=== PATIENT | female | born 1990 | race Caucasian/White ===

== ENCOUNTER 2020-11-11 08:22 | Inpatient (IN) ==
[2020-11-11] MEDS ORDERED: OXYTOCIN 30 UNITS/500 ML BAG IV PRN ×2 (08:43)
[2020-11-11] MEDS ORDERED: miSOPROStoL 50 MCG TAB PO ONE (09:04)
[2020-11-11 09:07] LABS: Hemoglobin 11.2 g/dL (12.0-16.0); Mean Corpuscular Hemoglobin 25.6 pg (25-34); Mean Corpuscular Hgb Conc 31.1 g/dL (32-36); Mean Corpuscular Volume 82.4 fL (80-100); Mean Platelet Volume 10.9 fL (7.4-10.4); Platelet Count 269 K/uL (130-400); RDW Coefficient of Variation 15.3 % (11.5-14.5); Red Blood Count 4.37 M/uL (4.2-5.4); White Blood Count 7.05 K/uL (4.8-10.8)
--- NOTE | 2020-11-11 14:30 | Labor Progress Brief Note ---
Date of Service November 11, 2020 Subjective Tolerating contractions, becoming more painful Assessment & Plan (1) PROM (premature rupture of membranes): Plan: Continue IOL, now s/p one dose cytotec with adequate ripening to begin pitocin. Epidural on request. Admission and Anticipated Discharge Date Admission Date: November 11, 2020 Physical Exam Physical Exam: LOF clear continues /-2 [place] irreg, Q2-5 FHT Cat 1 Results & Data ([facility]) Vital Signs (Past 12 Hours) Vital Signs Temp Pulse Resp BP 11/11/20 13:05 99.3 F 16 11/11/20 10:51 98.1 F 70 20 134/91 11/11/20 08:50 82 141/78 H 11/11/20 08:39 98.6 F 18 Coding Level of Care Code None Diagnoses PROM (premature rupture of membranes) O42.90
[2020-11-11] MEDS: LACTATED RINGER'S 1,000 ML IV PRN ×3 (14:36→22:41)
[2020-11-11] MEDS ORDERED: BUPIVACAINE 0.25% 30 ML VIAL ONE (16:19)
[2020-11-11] MEDS ORDERED: fentaNYL citrate 100 MCG/2 ML VIAL ONE (16:19)
[2020-11-11] MEDS ORDERED: ePHEDrine sulfate 50 MG/ML AMP ONE (16:19)
[2020-11-11] MEDS ORDERED: SODIUM CHLORIDE 0.9% INJ 10 ML VIAL ONE (16:19)
[2020-11-11] MEDS ORDERED: fentaNYL 2MCG/ML ROPIVACAINE 1.25MG/ML 100 ML BAG EPI ONE (16:20)
--- NOTE | 2020-11-11 17:07 | Anesthesiology Consultation ---
Date of Service November 11, 2020 Assessment & Plan Chart Review Chart Review: Acceptable Risk for Labor Epidural Consults Requested none History Height/Weight Height: 5 ft 2 in Weight: 80.739 kg Allergies Allergy/AdvReac Type Severity Reaction Status Date / Time No Known Allergies Allergy Verified 11/06/20 11:19 Medications Home Medications Medication Instructions Recorded Confirmed Last Taken prenat.vits,roslyn,omk-pleg-nbogy 1 tab PO DAILY 04/25/20 11/11/20 11/10/20 acetone (urine) test (Ketone Urine #50 ea 09/25/20 11/06/20 Unknown Test) blood sugar diagnostic (OneTouch #150 ea 09/25/20 11/06/20 Unknown Verio test strips) blood-glucose meter (OneTouch #1 ea 09/25/20 11/06/20 Unknown Verio Flex meter) lancets 33 gauge (OneTouch Delica #150 ea 09/25/20 11/06/20 Unknown Plus Lancet) cetirizine [Zyrtec] 1 tab PO DAILY 10/20/20 11/11/20 11/10/20 ferrous sulfate 325 mg (65 mg 325 mg PO Q OTHER DAY tab 10/20/20 11/11/20 11/08/20 iron) tablet breast pump #1 ea 10/30/20 11/06/20 Unknown Active Medications Generic Name Dose Route Start Last Admin Trade Name Freq PRN Reason Stop Dose Admin Oxytocin 30 units in 500 mls @ 3 mls/hr 11/11/20 08:43 11/11/20 15:40 Pitocin IV 11/13/20 08:42 0.18 units/hr .Q24H PRN 3 mls/hr Labor Induction/Augmentation Titration Protocol 0.18 UNITS/HR Lactated Ringer's 1,000 mls @ 125 mls/hr 11/11/20 08:43 11/11/20 16:30 Lr IV 11/13/20 08:42 999 mls/hr .Q8H PRN Infusion L&D Protocol Protocol Past Medical History Medical History (Updated 11/11/20 @ 14:29 by Aline Carson MD) Gestational diabetes Diet-Controlled Infertility Started with IVF - did not develop enough eggs. Converted to IUI in [place] Past Family History Family History Mother Diabetes Father Diabetes Past Surgical History Surgical History History of laparoscopy S/P wisdom tooth extraction Social History Smoking Status: Never smoker Hx Alcohol Use: No Hx Substance Use: No Physical Exam Vital Signs Last Vital Signs Temp 37.3 C 11/11/20 14:32 Pulse 90 11/11/20 17:06 Resp 18 11/11/20 15:38 BP 126/66 11/11/20 17:06 Pulse Ox 98 11/11/20 17:05 Testing Laboratory Results 11/11/20 08:51 11/11/20 09:27 POC Glucose 80
[2020-11-11] MEDS ORDERED: NALBUPHINE HCL INJ 10 MG/ML AMP IV PRN (17:09)
[2020-11-11] MEDS ORDERED: ePHEDrine sulfate 50 MG/ML AMP IV PRN (17:09)
[2020-11-11] MEDS ORDERED: NALOXONE HCL 0.4 MG/1 ML VIAL/CARP IV PRN (17:09)
[2020-11-11] MEDS ORDERED: diphenhydrAMINE 50 MG/ML VIAL IV PRN (17:09)
[2020-11-11] MEDS ORDERED: fentaNYL 2MCG/ML ROPIVACAINE 1.25MG/ML 100 ML BAG EPI PRN (17:09)
[2020-11-11] MEDS ORDERED: NALOXONE HCL 1 MG in SODIUM CHLORIDE 0.9% 1000ML 1,000 ML IV PRN (17:09)
[2020-11-11] MEDS ORDERED: CALCIUM CARBONATE 500 MG CHEWABLE TAB PO PRN (19:22)
--- NOTE | 2020-11-11 20:22 | Labor Progress Brief Note ---
Date of Service November 11, 2020 Subjective Comfortable with epidural Assessment & Plan (1) PROM (premature rupture of membranes): Plan: Continue IOL, titrate pitocin to adequate pattern. Discussed no significant ce rvical change but still very early in the process, ok to continue onwards. Admission and Anticipated Discharge Date Admission Date: November 11, 2020 Physical Exam Physical Exam: /-2 FHT Cat 1 [place] Q2 in clusters then a 5min break Pit @ 9 Results & Data ([facility]) Vital Signs (Past 12 Hours) Vital Signs Temp Pulse Resp BP Pulse Ox 11/11/20 20:15 75 97 11/11/20 20:11 71 122/67 11/11/20 20:10 75 97 11/11/20 20:05 90 97 11/11/20 20:00 72 97 11/11/20 19:56 71 117/66 11/11/20 19:55 83 97 11/11/20 19:50 76 97 11/11/20 19:45 85 97 11/11/20 19:42 79 117/67 11/11/20 19:40 80 98 11/11/20 19:35 85 98 11/11/20 19:30 89 98 11/11/20 19:25 84 97 11/11/20 19:20 86 98 11/11/20 19:15 98.4 F 87 18 97 11/11/20 19:10 81 98 11/11/20 19:05 80 98 11/11/20 19:00 97 H 97 11/11/20 18:58 91 H 120/75 11/11/20 18:55 91 H 97 11/11/20 18:50 83 97 11/11/20 18:45 86 97 11/11/20 18:42 80 122/58 L 11/11/20 18:40 84 97 11/11/20 18:35 88 97 11/11/20 18:30 82 97 11/11/20 18:28 80 20 120/72 11/11/20 18:25 81 98 11/11/20 18:20 78 96 11/11/20 18:15 77 97 11/11/20 18:13 78 122/69 11/11/20 18:10 76 97 11/11/20 18:05 82 98 11/11/20 18:00 81 98 11/11/20 17:57 75 18 118/66 11/11/20 17:55 77 98 11/11/20 17:50 75 98 11/11/20 17:45 80 98 11/11/20 17:42 82 150/77 H 11/11/20 17:40 84 98 11/11/20 17:35 81 98 11/11/20 17:30 87 98 11/11/20 17:26 81 18 126/69 11/11/20 17:25 74 98 11/11/20 17:24 78 132/70 11/11/20 17:22 81 137/69 11/11/20 17:20 76 141/65 H 98 11/11/20 17:18 77 18 136/75 11/11/20 17:16 80 18 132/71 11/11/20 17:15 80 98 11/11/20 17:14 87 18 138/73 11/11/20 17:12 81 18 132/73 11/11/20 17:10 81 18 131/72 98 11/11/20 17:08 88 18 128/70 11/11/20 17:06 90 126/66 11/11/20 17:05 89 98 11/11/20 17:04 94 H 128/72 11/11/20 17:02 91 H 18 143/87 H 11/11/20 17:00 85 20 135/81 98 11/11/20 16:58 98.2 F 81 20 131/75 11/11/20 16:56 80 20 136/81 11/11/20 16:55 80 98 11/11/20 16:54 71 20 134/78 11/11/20 16:52 93 H 20 149/85 H 11/11/20 16:50 87 150/90 H 99 11/11/20 16:48 81 20 144/92 H 11/11/20 16:45 112 H 99 11/11/20 16:41 102 H 20 149/90 H 11/11/20 16:40 99 H 98 11/11/20 15:38 86 18 133/71 11/11/20 14:32 99.1 F 73 18 135/70 11/11/20 13:05 99.3 F 16 11/11/20 10:51 98.1 F 70 20 134/91 11/11/20 08:50 82 141/78 H 11/11/20 08:39 98.6 F 18 Coding Level of Care Code None Diagnoses PROM (premature rupture of membranes) O42.90
[2020-11-12] MEDS: LACTATED RINGER'S 1,000 ML IV PRN (01:31)
--- NOTE | 2020-11-12 02:23 | Labor Progress Brief Note ---
Date of Service November 12, 2020 Subjective Comfortable with epidural Assessment & Plan (1) PROM (premature rupture of membranes): Plan: Some progress definitely present though I think maybe less than was expected by RN exam. Still sean regularly, and intermittently Cat 2 despite repositioning and boluses. Will give 30min break from pit to allow resuscitation, then resume at half current level and attempt to titrate up to Q2m. Can place IUPC if no progress at next exam. Unclear if CPD or if patient just not in active labor yet. Admission and Anticipated Discharge Date Admission Date: November 11, 2020 Physical Exam Physical Exam: Exam of cervix: I'd say 4.5/90/-2, definitely different from my last exam. In room with RN we said "same as last exam" to avoid discouraging patient, and there definitely is progress, but I wouldn't quite agree with 5.5cm. I do note some molding that seems more than before. FHT intermittently cat 2 with lates, then Cat 1 after repositioning. Moderate variability, normal baseline. [place] Q2-3 Pit @ 7 Results & Data ([facility]) Vital Signs (Past 12 Hours) Vital Signs Temp Pulse Resp BP Pulse Ox 11/12/20 02:15 95 H 95 11/12/20 02:11 88 124/58 L 11/12/20 02:10 93 H 95 11/12/20 02:05 93 H 95 11/12/20 02:03 94 H 94 11/12/20 02:00 94 H 95 11/12/20 01:58 91 H 121/56 L 94 11/12/20 01:55 92 H 95 11/12/20 01:50 92 H 96 11/12/20 01:45 87 96 11/12/20 01:41 82 115/55 L 11/12/20 01:40 85 96 11/12/20 01:35 79 97 11/12/20 01:30 83 97 11/12/20 01:27 77 124/61 11/12/20 01:25 78 97 11/12/20 01:20 80 97 11/12/20 01:15 76 97 11/12/20 01:12 75 134/67 11/12/20 01:10 77 96 11/12/20 01:05 83 97 11/12/20 01:00 98.2 F 79 18 97 11/12/20 00:57 82 142/67 H 11/12/20 00:55 81 97 11/12/20 00:50 83 97 11/12/20 00:45 91 H 97 11/12/20 00:41 101 H 122/59 L 11/12/20 00:40 101 H 96 11/12/20 00:35 95 H 95 11/12/20 00:30 93 H 95 11/12/20 00:27 93 H 122/58 L 94 11/12/20 00:25 92 H 95 11/12/20 00:20 93 H 95 11/12/20 00:15 88 95 11/12/20 00:11 88 120/56 L 11/12/20 00:10 91 H 96 11/12/20 00:05 85 96 11/12/20 00:00 82 96 11/11/20 23:56 88 113/58 L 11/11/20 23:55 89 96 11/11/20 23:50 86 97 11/11/20 23:45 106 H 98 11/11/20 23:43 127 H 18 128/75 11/11/20 23:40 104 H 99 11/11/20 23:35 95 H 98 11/11/20 23:30 80 97 11/11/20 23:27 71 118/57 L 11/11/20 23:25 77 96 11/11/20 23:20 78 97 11/11/20 23:15 76 97 11/11/20 23:12 74 125/63 11/11/20 23:10 77 98 11/11/20 23:05 76 97 11/11/20 23:00 87 98 11/11/20 22:56 96 H 135/78 11/11/20 22:55 104 H 97 11/11/20 22:50 99 H 97 11/11/20 22:45 101 H 96 11/11/20 22:42 99.3 F 18 11/11/20 22:40 105 H 97 11/11/20 22:35 89 98 11/11/20 22:30 97 H 97 11/11/20 22:27 88 134/75 11/11/20 22:25 96 H 97 11/11/20 22:20 103 H 97 11/11/20 22:15 88 97 09/21/21 22:12 83 137/74 0921/21 22:10 87 97 11/11/20 22:05 86 95 11/11/20 22:00 81 96 11/11/20 21:56 84 121/64 11/11/20 21:55 84 95 11/11/20 21:50 82 95 11/11/20 21:45 79 95 11/11/20 21:42 81 128/63 11/11/20 21:40 79 95 11/11/20 21:35 82 96 11/11/20 21:30 86 95 11/11/20 21:26 80 125/64 11/11/20 21:25 99 H 96 11/11/20 21:20 81 96 11/11/20 21:15 76 96 11/11/20 21:12 74 126/67 11/11/20 21:10 73 96 11/11/20 21:05 99.0 F 79 96 11/11/20 21:00 70 18 96 11/11/20 20:57 70 117/56 L 11/11/20 20:55 74 96 11/11/20 20:50 74 96 11/11/20 20:45 79 96 11/11/20 20:41 75 108/55 L 11/11/20 20:40 72 97 11/11/20 20:35 75 97 11/11/20 20:30 73 97 11/11/20 20:28 72 109/56 L 11/11/20 20:25 81 98 11/11/20 20:20 73 98 11/11/20 20:15 75 97 11/11/20 20:11 71 122/67 11/11/20 20:10 75 97 11/11/20 20:05 90 97 11/11/20 20:00 72 18 97 11/11/20 19:56 71 117/66 11/11/20 19:55 83 97 11/11/20 19:50 76 97 11/11/20 19:45 85 97 21 19:42 79 117/67 21 19:40 80 98 21 19:35 85 98 21 19:30 89 98 21 19:25 84 97 11/11/20 19:20 86 98 11/11/20 19:15 98.4 F 87 18 97 11/11/20 19:10 81 98 11/11/20 19:05 80 98 11/11/20 19:00 97 H 97 11/11/20 18:58 91 H 120/75 11/11/20 18:55 91 H 97 11/11/20 18:50 83 97 11/11/20 18:45 86 97 11/11/20 18:42 80 122/58 L 11/11/20 18:40 84 97 11/11/20 18:35 88 97 11/11/20 18:30 82 97 11/11/20 18:28 80 20 120/72 11/11/20 18:25 81 98 11/11/20 18:20 78 96 11/11/20 18:15 77 97 11/11/20 18:13 78 122/69 11/11/20 18:10 76 97 11/11/20 18:05 82 98 11/11/20 18:00 81 98 11/11/20 17:57 75 18 118/66 11/11/20 17:55 77 98 11/11/20 17:50 75 98 11/11/20 17:45 80 98 11/11/20 17:42 82 150/77 H 11/11/20 17:40 84 98 11/11/20 17:35 81 98 11/11/20 17:30 87 98 11/11/20 17:26 81 18 126/69 11/11/20 17:25 74 98 11/11/20 17:24 78 132/70 11/11/20 17:22 81 137/69 11/11/20 17:20 76 141/65 H 98 11/11/20 17:18 77 18 136/75 11/11/20 17:16 80 18 132/71 11/11/20 17:15 80 98 11/11/20 17:14 87 18 138/73 11/11/20 17:12 81 18 132/73 11/11/20 17:10 81 18 131/72 98 11/11/20 17:08 88 18 128/70 11/11/20 17:06 90 126/66 11/11/20 17:05 89 98 11/11/20 17:04 94 H 128/72 11/11/20 17:02 91 H 18 143/87 H 11/11/20 17:00 85 20 135/81 98 11/11/20 16:58 98.2 F 81 20 131/75 11/11/20 16:56 80 20 136/81 11/11/20 16:55 80 98 11/11/20 16:54 71 20 134/78 11/11/20 16:52 93 H 20 149/85 H 11/11/20 16:50 87 150/90 H 99 11/11/20 16:48 81 20 144/92 H 11/11/20 16:45 112 H 99 11/11/20 16:41 102 H 20 149/90 H 11/11/20 16:40 99 H 98 11/11/20 15:38 86 18 133/71 11/11/20 14:32 99.1 F 73 18 135/70 Coding Level of Care Code None Diagnoses PROM (premature rupture of membranes) O42.90
[2020-11-12] MEDS ORDERED: ACETAMINOPHEN 650 MG SUPP PR STA (03:07)
--- NOTE | 2020-11-12 03:09 | Communication Note ---
Date of Service: November 12, 2020 RN alerted me to patient temp rising and patient feels chilled. Will start Unasyn for suspected chorioamnionitis and give tylenol now for symptom relief. FHT Cat 1 and pitocin resuming now.
[2020-11-12] MEDS ORDERED: AMPICILLIN/SULBACTAM SOD 3,000 MG in 0.9 % SODIUM CHLORIDE 100 ML IV ONE (03:30)
[2020-11-12] MEDS ORDERED: CITRIC ACID/SODIUM CITRATE 15 ML UDC PO SCH (06:00)
--- NOTE | 2020-11-12 06:03 | Labor Progress Brief Note ---
Date of Service November 12, 2020 Subjective Comfortable with epidural. Note the patient developed elevated temp earlier, and was started on Unasyn and Tylenol x1. When she had fever, she had symptoms of infection. She no longer feels the chills / feverish feelings she had at that time. Assessment & Plan (1) PROM (premature rupture of membranes): Plan: ROM at 0400 yesterday morning, induction began at admission at 8:30am with cytotec then pitocin, and patient has made slow progress to now 6cm dilation. IUPC placed and shows likely adequate contractions even at this interval, goal of MVU 200-250. (2) Chorioamnionitis: Plan: Patient started on antibiotic and antipyretic with good results, status Cat 1 and maternal symptoms resolved, however I discussed with the patient and FOB that she needs to make progress swiftly to delivery one way or the other in order to relieve the infection. She is not ready to move to section as she was really hoping to avoid that; her mother had 3x . status and maternal status both allow continuation of efforts to induce at this point, but patient also asks about whether sepsis could occur, and we discussed that yes, if the infection persists long enough that would be the eventual result. We placed IUPC after counseling patient and obtaining consent, in order to ensur e that we are providing adequate force to effect delivery, and to improve our ability to document CPD / failure sooner rather than later if that's the case. She is agreeable to a re-check in a few hours and if no further progress would likely agree to , and is aware that distress or worsening maternal condition may force us to a decision even sooner. Initial contraction measurements appear quite strong, so I suspect that since her pitocin has reached 7 before, she has likely been adequate at least some of the time prior to now. For now, close monitoring and try to allow time for cervix to dilate at one more interval. Admission and Anticipated Discharge Date Admission Date: November 11, 2020 Physical Exam Physical Exam: /-1 FHT Cat 1 [place] Q3-4 with pit @ 7 Temp 37C taken while I was in the room Results & Data ([facility]) Vital Signs (Past 12 Hours) Vital Signs Temp Pulse Resp BP Pulse Ox 11/12/20 05:50 74 96 11/12/20 05:45 97 H 97 11/12/20 05:42 68 105/59 L 11/12/20 05:40 86 96 11/12/20 05:35 101 H 96 11/12/20 05:30 89 95 11/12/20 05:27 77 116/55 L 94 11/12/20 05:25 77 95 11/12/20 05:20 77 96 11/12/20 05:18 74 94 11/12/20 05:15 79 94 11/12/20 05:13 75 115/55 L 11/12/20 05:12 76 93 11/12/20 05:10 89 94 11/12/20 05:07 80 94 11/12/20 05:05 76 95 11/12/20 05:01 79 94 11/12/20 05:00 74 95 11/12/20 04:56 81 110/54 L 11/12/20 04:55 79 94 11/12/20 04:50 78 95 11/12/20 04:48 79 94 11/12/20 04:45 82 95 11/12/20 04:43 81 94 11/12/20 04:41 85 114/57 L 11/12/20 04:40 82 95 11/12/20 04:37 80 94 11/12/20 04:35 80 95 11/12/20 04:31 79 94 11/12/20 04:30 74 95 11/12/20 04:26 74 110/55 L 94 11/12/20 04:25 78 95 11/12/20 04:20 79 95 11/12/20 04:15 83 96 11/12/20 04:12 76 131/60 11/12/20 04:10 85 97 11/12/20 04:05 95 H 98 11/12/20 04:00 99.5 F 88 18 97 11/12/20 03:55 84 96 11/12/20 03:50 84 96 11/12/20 03:45 89 97 11/12/20 03:42 84 123/58 L 11/12/20 03:40 84 97 11/12/20 03:35 99 H 97 11/12/20 03:30 120 H 97 11/12/20 03:28 142 H 157/99 H 11/12/20 03:25 105 H 97 11/12/20 03:20 99 H 97 11/12/20 03:15 103 H 97 11/12/20 03:12 100 H 145/86 H 11/12/20 03:10 102 H 97 11/12/20 03:05 107 H 97 11/12/20 03:00 100.2 F H 99 H 99 11/12/20 02:56 96 H 136/72 11/12/20 02:55 105 H 99 11/12/20 02:50 96 H 99 11/12/20 02:45 106 H 99 11/12/20 02:42 99 H 131/80 11/12/20 02:40 91 H 99 11/12/20 02:35 91 H 100 11/12/20 02:30 106 H 100 11/12/20 02:26 114 H 136/70 11/12/20 02:25 119 H 96 11/12/20 02:20 100 H 95 11/12/20 02:15 95 H 95 11/12/20 02:11 88 124/58 L 11/12/20 02:10 93 H 95 11/12/20 02:05 93 H 95 11/12/20 02:03 94 H 94 11/12/20 02:00 94 H 95 11/12/20 01:58 91 H 121/56 L 94 11/12/20 01:55 92 H 95 11/12/20 01:50 92 H 96 11/12/20 01:45 87 96 11/12/20 01:41 82 115/55 L 11/12/20 01:40 85 96 11/12/20 01:35 79 97 11/12/20 01:30 83 97 11/12/20 01:27 77 124/61 11/12/20 01:25 78 97 11/12/20 01:20 80 97 11/12/20 01:15 76 97 11/12/20 01:12 75 134/67 11/12/20 01:10 77 96 11/12/20 01:05 83 97 11/12/20 01:00 98.2 F 79 18 97 11/12/20 00:57 82 142/67 H 11/12/20 00:55 81 97 11/12/20 00:50 83 97 11/12/20 00:45 91 H 97 11/12/20 00:41 101 H 122/59 L 09/22/21 00:40 101 H 96 11/12/20 00:35 95 H 95 11/12/20 00:30 93 H 95 11/12/20 00:27 93 H 122/58 L 94 11/12/20 00:25 92 H 95 11/12/20 00:20 93 H 95 11/12/20 00:15 88 95 11/12/20 00:11 88 120/56 L 11/12/20 00:10 91 H 96 11/12/20 00:05 85 96 11/12/20 00:00 82 96 11/11/20 23:56 88 113/58 L 11/11/20 23:55 89 96 11/11/20 23:50 86 97 11/11/20 23:45 106 H 98 11/11/20 23:43 127 H 18 128/75 11/11/20 23:40 104 H 99 11/11/20 23:35 95 H 98 11/11/20 23:30 80 97 11/11/20 23:27 71 118/57 L 11/11/20 23:25 77 96 11/11/20 23:20 78 97 11/11/20 23:15 76 97 11/11/20 23:12 74 125/63 11/11/20 23:10 77 98 11/11/20 23:05 76 97 11/11/20 23:00 87 98 11/11/20 22:56 96 H 135/78 11/11/20 22:55 104 H 97 11/11/20 22:50 99 H 97 11/11/20 22:45 101 H 96 11/11/20 22:42 99.3 F 18 11/11/20 22:40 105 H 97 11/11/20 22:35 89 98 11/11/20 22:30 97 H 97 11/11/20 22:27 88 134/75 11/11/20 22:25 96 H 97 11/11/20 22:20 103 H 97 11/11/20 22:15 88 97 11/11/20 22:12 83 137/74 11/11/20 22:10 87 97 11/11/20 22:05 86 95 11/11/20 22:00 81 96 11/11/20 21:56 84 121/64 11/11/20 21:55 84 95 11/11/20 21:50 82 95 11/11/20 21:45 79 95 11/11/20 21:42 81 128/63 11/11/20 21:40 79 95 11/11/20 21:35 82 96 11/11/20 21:30 86 95 11/11/20 21:26 80 125/64 11/11/20 21:25 99 H 96 11/11/20 21:20 81 96 11/11/20 21:15 76 96 11/11/20 21:12 74 126/67 11/11/20 21:10 73 96 11/11/20 21:05 99.0 F 79 96 11/11/20 21:00 70 18 96 11/11/20 20:57 70 117/56 L 11/11/20 20:55 74 96 11/11/20 20:50 74 96 11/11/20 20:45 79 96 11/11/20 20:41 75 108/55 L 11/11/20 20:40 72 97 11/11/20 20:35 75 97 11/11/20 20:30 73 97 11/11/20 20:28 72 109/56 L 11/11/20 20:25 81 98 11/11/20 20:20 73 98 11/11/20 20:15 75 97 11/11/20 20:11 71 122/67 11/11/20 20:10 75 97 11/11/20 20:05 90 97 11/11/20 20:00 72 18 97 11/11/20 19:56 71 117/66 11/11/20 19:55 83 97 11/11/20 19:50 76 97 11/11/20 19:45 85 97 11/11/20 19:42 79 117/67 11/11/20 19:40 80 98 11/11/20 19:35 85 98 11/11/20 19:30 89 98 11/11/20 19:25 84 97 11/11/20 19:20 86 98 11/11/20 19:15 98.4 F 87 18 97 11/11/20 19:10 81 98 11/11/20 19:05 80 98 11/11/20 19:00 97 H 97 11/11/20 18:58 91 H 120/75 11/11/20 18:55 91 H 97 11/11/20 18:50 83 97 11/11/20 18:45 86 97 11/11/20 18:42 80 122/58 L 11/11/20 18:40 84 97 11/11/20 18:35 88 97 11/11/20 18:30 82 97 11/11/20 18:28 80 20 120/72 11/11/20 18:25 81 98 11/11/20 18:20 78 96 11/11/20 18:15 77 97 11/11/20 18:13 78 122/69 11/11/20 18:10 76 97 11/11/20 18:05 82 98 11/11/20 18:00 81 98 11/11/20 17:57 75 18 118/66 11/11/20 17:55 77 98 Coding Level of Care Code None Diagnoses PROM (premature rupture of membranes) O42.90 Chorioamnionitis O41.1290
[2020-11-12] MEDS ORDERED: CITRIC ACID/SODIUM CITRATE 15 ML UDC ONE (07:14)
[2020-11-12] MEDS ORDERED: GENTAMICIN CONSULT ACTIVE PRN (07:20)
--- NOTE | 2020-11-12 07:20 | Labor Progress Brief Note ---
Date of Service November 12, 2020 Subjective Comfortable with epidural Assessment & Plan (1) Chorioamnionitis: Plan: PROM with IOL over 24hr, not able to reach complete dilation, now with distress preventing further use of induction agent, and chorioamnionitis being treated with Unasyn for last 3 hours. Overall picture concerning and patient counseled again, now agrees to move to section. Indications of failure to progress, chorio, NRFHT noted. She wants to know if she is a candidate; discussed that after 1 LTCS she would be a candidate but given her pelvis, progress today (or lack thereof), and family history of all deliveries in her own mother possibly due to narrow pelvic shape, I don't expect her to have a good chance of success. That will be a decision she has to make with future pregnancies but she may simply need to have her babies by , as some people do, but we can't know that 100% at this time; she voices understanding. Consent form reviewed line by line with FOB and patient, both sign after stating they have no further questions. (2) PROM (premature rupture of membranes): Admission and Anticipated Discharge Date Admission Date: November 11, 2020 Physical Exam Physical Exam: Cervix still 6/90/-1 FHT Cat 2 with recurrent lates as pitocin reached 9mu/min, then pit turned off. [place] Q3-4min but strong ctx, adequate MVU. Results & Data ([facility]) Vital Signs (Past 12 Hours) Vital Signs Temp Pulse Resp BP Pulse Ox 11/12/20 07:10 102 H 97 11/12/20 07:05 80 97 11/12/20 07:00 89 97 11/12/20 06:56 96 H 135/72 11/12/20 06:55 96 H 97 11/12/20 06:50 83 95 11/12/20 06:45 80 95 11/12/20 06:43 81 112/59 L 92 11/12/20 06:40 75 95 11/12/20 06:37 80 94 11/12/20 06:35 79 97 11/12/20 06:30 77 95 11/12/20 06:26 73 125/58 L 11/12/20 06:25 82 96 11/12/20 06:20 78 96 11/12/20 06:15 77 95 11/12/20 06:12 78 126/59 L 92 11/12/20 06:10 72 97 11/12/20 06:05 80 95 11/12/20 06:00 74 96 11/12/20 05:58 88 118/57 L 11/12/20 05:56 80 94 11/12/20 05:55 90 96 11/12/20 05:50 74 96 11/12/20 05:45 97 H 97 11/12/20 05:42 98.6 F 68 18 105/59 L 11/12/20 05:40 86 96 11/12/20 05:35 101 H 96 11/12/20 05:30 89 95 11/12/20 05:27 77 116/55 L 94 11/12/20 05:25 77 95 11/12/20 05:20 77 96 11/12/20 05:18 74 94 11/12/20 05:15 79 94 11/12/20 05:13 75 115/55 L 11/12/20 05:12 76 93 11/12/20 05:10 89 94 11/12/20 05:07 80 94 11/12/20 05:05 76 95 11/12/20 05:01 79 94 11/12/20 05:00 74 95 11/12/20 04:56 81 110/54 L 11/12/20 04:55 79 94 11/12/20 04:50 78 95 11/12/20 04:48 79 94 11/12/20 04:45 82 95 11/12/20 04:43 81 94 11/12/20 04:41 85 114/57 L 11/12/20 04:40 82 95 11/12/20 04:37 80 94 11/12/20 04:35 80 95 11/12/20 04:31 79 94 11/12/20 04:30 74 95 11/12/20 04:26 74 110/55 L 94 11/12/20 04:25 78 95 11/12/20 04:20 79 95 11/12/20 04:15 83 96 11/12/20 04:12 76 131/60 11/12/20 04:10 85 97 11/12/20 04:05 95 H 98 11/12/20 04:00 99.5 F 88 18 97 11/12/20 03:55 84 96 11/12/20 03:50 84 96 11/12/20 03:45 89 97 11/12/20 03:42 84 123/58 L 11/12/20 03:40 84 97 11/12/20 03:35 99 H 97 11/12/20 03:30 120 H 97 11/12/20 03:28 142 H 157/99 H 11/12/20 03:25 105 H 97 11/12/20 03:20 99 H 97 11/12/20 03:15 103 H 97 11/12/20 03:12 100 H 145/86 H 11/12/20 03:10 102 H 97 11/12/20 03:05 107 H 97 11/12/20 03:00 100.2 F H 99 H 99 11/12/20 02:56 96 H 136/72 11/12/20 02:55 105 H 99 11/12/20 02:50 96 H 99 11/12/20 02:45 106 H 99 11/12/20 02:42 99 H 131/80 11/12/20 02:40 91 H 99 11/12/20 02:35 91 H 100 11/12/20 02:30 106 H 100 11/12/20 02:26 114 H 136/70 11/12/20 02:25 119 H 96 11/12/20 02:20 100 H 95 11/12/20 02:15 95 H 95 11/12/20 02:11 88 124/58 L 11/12/20 02:10 93 H 95 11/12/20 02:05 93 H 95 11/12/20 02:03 94 H 94 11/12/20 02:00 94 H 95 11/12/20 01:58 91 H 121/56 L 94 11/12/20 01:55 92 H 95 11/12/20 01:50 92 H 96 11/12/20 01:45 87 96 11/12/20 01:41 82 115/55 L 11/12/20 01:40 85 96 11/12/20 01:35 79 97 11/12/20 01:30 83 97 11/12/20 01:27 77 124/61 11/12/20 01:25 78 97 11/12/20 01:20 80 97 11/12/20 01:15 76 97 11/12/20 01:12 75 134/67 11/12/20 01:10 77 96 11/12/20 01:05 83 97 11/12/20 01:00 98.2 F 79 18 97 11/12/20 00:57 82 142/67 H 11/12/20 00:55 81 97 11/12/20 00:50 83 97 11/12/20 00:45 91 H 97 11/12/20 00:41 101 H 122/59 L 11/12/20 00:40 101 H 96 11/12/20 00:35 95 H 95 11/12/20 00:30 93 H 95 11/12/20 00:27 93 H 122/58 L 94 11/12/20 00:25 92 H 95 11/12/20 00:20 93 H 95 11/12/20 00:15 88 95 11/12/20 00:11 88 120/56 L 11/12/20 00:10 91 H 96 11/12/20 00:05 85 96 11/12/20 00:00 82 96 11/11/20 23:56 88 113/58 L 11/11/20 23:55 89 96 11/11/20 23:50 86 97 11/11/20 23:45 106 H 98 11/11/20 23:43 127 H 18 128/75 11/11/20 23:40 104 H 99 11/11/20 23:35 95 H 98 11/11/20 23:30 80 97 11/11/20 23:27 71 118/57 L 11/11/20 23:25 77 96 11/11/20 23:20 78 97 11/11/20 23:15 76 97 11/11/20 23:12 74 125/63 11/11/20 23:10 77 98 11/11/20 23:05 76 97 11/11/20 23:00 87 98 11/11/20 22:56 96 H 135/78 11/11/20 22:55 104 H 97 11/11/20 22:50 99 H 97 11/11/20 22:45 101 H 96 11/11/20 22:42 99.3 F 18 11/11/20 22:40 105 H 97 11/11/20 22:35 89 98 11/11/20 22:30 97 H 97 11/11/20 22:27 88 134/75 11/11/20 22:25 96 H 97 11/11/20 22:20 103 H 97 11/11/20 22:15 88 97 11/11/20 22:12 83 137/74 11/11/20 22:10 87 97 11/11/20 22:05 86 95 11/11/20 22:00 81 96 11/11/20 21:56 84 121/64 11/11/20 21:55 84 95 11/11/20 21:50 82 95 11/11/20 21:45 79 95 21 21:42 81 128/63 11/11/20 21:40 79 95 11/11/20 21:35 82 96 11/11/20 21:30 86 95 11/11/20 21:26 80 125/64 11/11/20 21:25 99 H 96 11/11/20 21:20 81 96 11/11/20 21:15 76 96 11/11/20 21:12 74 126/67 11/11/20 21:10 73 96 11/11/20 21:05 99.0 F 79 96 11/11/20 21:00 70 18 96 11/11/20 20:57 70 117/56 L 11/11/20 20:55 74 96 11/11/20 20:50 74 96 11/11/20 20:45 79 96 11/11/20 20:41 75 108/55 L 11/11/20 20:40 72 97 11/11/20 20:35 75 97 11/11/20 20:30 73 97 11/11/20 20:28 72 109/56 L 11/11/20 20:25 81 98 11/11/20 20:20 73 98 11/11/20 20:15 75 97 11/11/20 20:11 71 122/67 11/11/20 20:10 75 97 11/11/20 20:05 90 97 11/11/20 20:00 72 18 97 11/11/20 19:56 71 117/66 21 19:55 83 97 21 19:50 76 97 21 19:45 85 97 21/21 19:42 79 117/67 21 19:40 80 98 21 19:35 85 98 11/11/20 19:30 89 98 09/21/21 19:25 84 97 11/11/20 19:20 86 98 Coding Level of Care Code None Diagnoses Chorioamnionitis O41.1290 PROM (premature rupture of membranes) O42.90
[2020-11-12] MEDS ORDERED: LACTATED RINGER'S 1,000 ML IV SCH ×2 (07:30→09:34)
[2020-11-12] MEDS ORDERED: LIDOCAINE 2%/EPINEPHRINE 1:200,000 20 ML SDV ONE (07:41)
--- NOTE | 2020-11-12 07:44 | Operative Report ---
PG Post Operative Report Pre & Post Diagnosis Operation Date: 11/12/20 07:20 SIUP @ 37w6d PROM x 24+ hours Failure to progress Chorioamnionitis Nonreassuring Heart Tones I identified the patient and participated in the time-out.: Yes Procedure Operation Date: 11/12/20 07:20 Primary Low Transverse Section Surgeon Aline Carson MD Metal Sponge Making Machine Operator Liz LEGER DO Estimated Blood Loss 500 Findings Consistent with Post-Op Diagnosis Specimens Placenta, Cord blood Anesthesia Type L&D Only Epidural Exists Complications none Disposition Accompanied Patient To Recovery: Yes Disposition: L&D Description of Procedure The patient was placed operating table in the supine position with a leftward tilt. She was prepped and draped in standard sterile fashion. The anesthetic was tested and found to be adequate. A time-out was held, identifying correct patient, procedure, positioning and preoperative antibiotics. There were no concerns. A Pfannenstiel skin incision was made with a knife and taken down to the underlying layer of fascia. The fascia was incised in the midline with the knife and taken out laterally with scissors. The superior edge of the fascial incision was grasped, elevated and dissected off the underlying rectus both eli periorly and inferiorly. The muscles were bluntly in the midline. The peritoneum was entered bluntly. The incision was then stretched. The bladder retractor was placed. The vesicouterine peritoneum was identified, entered with scissors and taken out laterally with scissors. The bladder flap was created digitally. A hysterotomy incision was created transversely in the lower uterine segment, final entry being accomplished in a blunt manner with the chopping machine operator's fingers. Clear amniotic fluid was encountered. The chopping machine operator's hand was used to elevate the head to the hysterotomy. The head was delivered using mild fundal pressure, and the shoulders and body followed without difficulty. The cord was clamped and cut and the was then handed off to the awaiting commissioner of officials. Cord blood was obtained. The placenta was Manually extracted. The uterus was exteriorized and cleared of all clot and debris with moistened laparotomy sponges. The hysterotomy incision was repaired in two layers, the first in a running locked layer, the second in an imbricating layer. The ovaries and tubes were seen to be normal bilaterally. The uterus was gently replaced in the abdomen, and the gutters were cleared of clot and debris. A small ooze was seen near the R angle, which was addressed with one [id number] 0-vicryl stitch. A final inspection of the hysterotomy revealed good hemostasis. The rectus muscles were allowed to reapproximate naturally. The fascia was then reapproximated with 1 Vicryl in a running nonlocked manner. The fascia was examined and found to be free of defect following closure. The subcutaneous tissue was copiously irrigated and reapproximated with 0-chromic, then the skin edges were closed with 4-0 monocryl in a subcuticular fashion. A dermabond dressing was applied. The gill was found to be draining clear yellow urine at completion of the procedure. I attest to the content of the Intraoperative Record and any orders documented therein. Any exceptions are noted below. I attest to the content of the Intraoperative Record and any orders documented therein. Any exceptions are noted below.
[2020-11-12 07:45] LABS: Basophils # (auto) 0.01 K/uL (0-0.2); Basophils % (auto) 0.1 %; Eosinophils # (auto) 0.02 K/uL (0-0.5); Eosinophils % (auto) 0.1 %; Hematocrit (blood only) 33.7 % (37-47); Hemoglobin 10.5 g/dL (12.0-16.0); Immature Granulocytes # (auto) 0.11 K/uL (0.00-0.02); Immature Granulocytes % (auto) 0.8 %; Lymphocytes # (auto) 1.37 K/uL (1.2-3.4); Lymphocytes % (auto) 9.7 %; Mean Corpuscular Hemoglobin 25.2 pg (25-34); Mean Corpuscular Hgb Conc 31.2 g/dL (32-36); Mean Corpuscular Volume 80.8 fL (80-100); Mean Platelet Volume 10.7 fL (7.4-10.4); Monocytes # (auto) 0.77 K/uL (0.11-0.59); Monocytes % (auto) 5.4 %; Neutrophils # (auto) 11.85 K/uL (1.4-6.5); Neutrophils % (auto) 83.9 %; Nucleated RBC # (auto) 0.04 K/uL (0-0); Nucleated RBC % (auto) 0.3 %; Platelet Count 211 K/uL (130-400); RDW Coefficient of Variation 15.6 % (11.5-14.5); RDW Standard Deviation 45.1 fL (36.4-46.3); Red Blood Count 4.17 M/uL (4.2-5.4); White Blood Count 14.13 K/uL (4.8-10.8)
[2020-11-12] MEDS ORDERED: CLINDAMYCIN 900 MG in DEXTROSE 5% 50 ML IV SCH (07:45)
[2020-11-12] MEDS ORDERED: GENTAMICIN SULFATE 320 MG in DEXTROSE 5% 100 ML IV SCH (07:45)
[2020-11-12] MEDS ORDERED: ONDANSETRON INJ 2 MG/ML 2 ML VIAL ONE (08:17)
[2020-11-12] MEDS ORDERED: OXYTOCIN 10 UNITS/ML VIAL ONE (08:17)
[2020-11-12] MEDS ORDERED: MoRPHine SULFATE PF 1 MG/ML 10 ML AMP/VIAL ONE (08:17)
[2020-11-12] MEDS ORDERED: PROMETHAZINE HCL INJ 25 MG/ML 1 ML VIAL ONE (08:38)
[2020-11-12] MEDS ORDERED: KETOROLAC 30 MG/ML VIAL ONE (08:39)
[2020-11-12] MEDS ORDERED: ACETAMINOPHEN 1000 MG/100 ML IV IV PRN (09:29)
[2020-11-12] MEDS ORDERED: ONDANSETRON INJ 2 MG/ML 2 ML VIAL IV PRN (09:29)
[2020-11-12] MEDS ORDERED: NALOXONE HCL 0.4 MG/1 ML VIAL/CARP IV PRN (09:29)
[2020-11-12] MEDS ORDERED: LACTATED RINGER'S 500 ML IV PRN (09:29)
[2020-11-12] MEDS ORDERED: MoRPHine SULFATE PF 1 MG/ML 10 ML AMP/VIAL EPI ONE (09:29)
[2020-11-12] MEDS ORDERED: HYDROmorphone INJ 0.5 MG/0.5 ML SYR IV PRN (09:29)
[2020-11-12] MEDS ORDERED: diphenhydrAMINE 50 MG/ML VIAL IV PRN (09:29)
[2020-11-12] MEDS ORDERED: NALOXONE HCL 1 MG in SODIUM CHLORIDE 0.9% 1000ML 1,000 ML IV PRN (09:29)
[2020-11-12] MEDS ORDERED: NALBUPHINE HCL INJ 10 MG/ML AMP IV PRN (09:29)
[2020-11-12] MEDS ORDERED: NALOXONE HCL 0.08 MG in SYRINGE 1.8 ML IV PRN (09:29)
[2020-11-12] MEDS ORDERED: ePHEDrine sulfate 50 MG/ML AMP IV PRN (09:29)
[2020-11-12] MEDS ORDERED: SODIUM CHLORIDE 0.9% 1000ML 1,000 ML IV SCH (09:30)
[2020-11-12] MEDS ORDERED: DC INTRASPINAL MORPHINE SCH (09:30)
[2020-11-12] MEDS ORDERED: NO NARCOTICS OR SEDATIVES SCH (09:30)
[2020-11-12] MEDS ORDERED: DIPHTHERIA/TETANUS/PERTUSSIS 0.5 ML SYR/VIAL IM ONE (09:34)
[2020-11-12] MEDS ORDERED: SUPERCREAM 0.870% 15 GM JAR EXT PRN (09:34)
[2020-11-12] MEDS ORDERED: MAGNESIUM HYDROXIDE SUSP 30 ML UDC PO PRN (09:34)
[2020-11-12] MEDS ORDERED: SENNA 8.6 MG TAB PO PRN (09:34)
[2020-11-12] MEDS ORDERED: HYDROCORTISONE ACETATE 25 MG SUPP PR PRN (09:34)
[2020-11-12] MEDS ORDERED: BENZOCAINE 20% AER SPR 82.5 GM CAN EXT PRN (09:34)
[2020-11-12] MEDS: AMPICILLIN/SULBACTAM SOD 1,500 MG in 0.9 % SODIUM CHLORIDE 100 ML IV SCH ×3 (09:38→21:27)
--- NOTE | 2020-11-12 09:39 | Anesthesia Procedure Note ---
Date of Service November 12, 2020 Anesthesia Post Epidural Note Vital Signs Vital Signs: Temp Pulse Resp BP Pulse Ox 37.3 C 81 16 134/62 99 11/12/20 07:28 11/12/20 09:36 11/12/20 09:30 11/12/20 09:36 11/12/20 09:35 Pain Intensity Lower Abdomen: Pain Intensity: 0 Notes Mental Status: alert / awake / arousable and participated in evaluation Nausea / Vomiting: adequately controlled Pain: adequately controlled Airway Patency, RR, SpO2: stable & adequate BP & HR: stable & adequate Hydration State: stable & adequate Neuraxial Anesthesia: was administered and sensory block is resolving Anesthetic Complications: no major complications apparent and Pt Satisfied with anesthetic care Epidural: Removed without complications and With tip intact
--- NOTE | 2020-11-12 09:40 | Anesthesiology Progress Note ---
Date of Service November 12, 2020 Anesthesia Post Procedure Vital Signs Vital Signs: Temp Pulse Resp BP Pulse Ox 11/12/20 09:36 81 134/62 11/12/20 09:35 81 99 11/12/20 09:30 87 16 99 11/12/20 09:26 96 H 109/68 11/12/20 09:25 94 H 98 11/12/20 09:20 79 16 96 11/12/20 09:16 72 107/58 L 11/12/20 09:15 77 97 11/12/20 09:11 81 104/59 L 11/12/20 09:10 79 16 98 11/12/20 09:05 90 100 11/12/20 09:00 88 16 97 11/12/20 08:56 87 112/61 11/12/20 08:55 95 H 98 11/12/20 07:41 128 H 98 11/12/20 07:36 85 98 11/12/20 07:31 84 97 11/12/20 07:28 37.3 C 79 20 152/76 H 11/12/20 07:26 77 97 11/12/20 07:21 86 143/73 H 97 11/12/20 07:16 94 H 97 11/12/20 07:10 102 H 97 11/12/20 07:05 80 97 11/12/20 07:00 89 97 11/12/20 06:56 96 H 135/72 11/12/20 06:55 96 H 97 11/12/20 06:50 83 95 11/12/20 06:45 80 95 11/12/20 06:43 81 112/59 L 92 11/12/20 06:40 75 95 11/12/20 06:37 80 94 11/12/20 06:35 79 97 11/12/20 06:30 77 95 11/12/20 06:26 73 125/58 L 11/12/20 06:25 82 96 11/12/20 06:20 78 96 11/12/20 06:15 77 95 11/12/20 06:12 78 126/59 L 92 11/12/20 06:10 72 97 11/12/20 06:05 80 95 11/12/20 06:00 74 96 11/12/20 05:58 88 118/57 L 11/12/20 05:56 80 94 11/12/20 05:55 90 96 11/12/20 05:50 74 96 11/12/20 05:45 97 H 97 11/12/20 05:42 37.0 C 68 18 105/59 L 11/12/20 05:40 86 96 11/12/20 05:35 101 H 96 11/12/20 05:30 89 95 11/12/20 05:27 77 116/55 L 94 11/12/20 05:25 77 95 11/12/20 05:20 77 96 11/12/20 05:18 74 94 11/12/20 05:15 79 94 11/12/20 05:13 75 115/55 L 11/12/20 05:12 76 93 11/12/20 05:10 89 94 11/12/20 05:07 80 94 11/12/20 05:05 76 95 11/12/20 05:01 79 94 11/12/20 05:00 74 95 11/12/20 04:56 81 110/54 L 11/12/20 04:55 79 94 11/12/20 04:50 78 95 11/12/20 04:48 79 94 11/12/20 04:45 82 95 11/12/20 04:43 81 94 11/12/20 04:41 85 114/57 L 11/12/20 04:40 82 95 11/12/20 04:37 80 94 11/12/20 04:35 80 95 11/12/20 04:31 79 94 11/12/20 04:30 74 95 11/12/20 04:26 74 110/55 L 94 11/12/20 04:25 78 95 11/12/20 04:20 79 95 11/12/20 04:15 83 96 11/12/20 04:12 76 131/60 11/12/20 04:10 85 97 11/12/20 04:05 95 H 98 11/12/20 04:00 37.5 C 88 18 97 11/12/20 03:55 84 96 11/12/20 03:50 84 96 11/12/20 03:45 89 97 11/12/20 03:42 84 123/58 L 11/12/20 03:40 84 97 11/12/20 03:35 99 H 97 11/12/20 03:30 120 H 97 11/12/20 03:28 142 H 157/99 H 11/12/20 03:25 105 H 97 11/12/20 03:20 99 H 97 11/12/20 03:15 103 H 97 11/12/20 03:12 100 H 145/86 H 11/12/20 03:10 102 H 97 11/12/20 03:05 107 H 97 11/12/20 03:00 37.9 C H 99 H 99 11/12/20 02:56 96 H 136/72 11/12/20 02:55 105 H 99 11/12/20 02:50 96 H 99 11/12/20 02:45 106 H 99 11/12/20 02:42 99 H 131/80 11/12/20 02:40 91 H 99 11/12/20 02:35 91 H 100 11/12/20 02:30 106 H 100 11/12/20 02:26 114 H 136/70 11/12/20 02:25 119 H 96 11/12/20 02:20 100 H 95 11/12/20 02:15 95 H 95 11/12/20 02:11 88 124/58 L 11/12/20 02:10 93 H 95 11/12/20 02:05 93 H 95 11/12/20 02:03 94 H 94 11/12/20 02:00 94 H 95 11/12/20 01:58 91 H 121/56 L 94 11/12/20 01:55 92 H 95 11/12/20 01:50 92 H 96 11/12/20 01:45 87 96 11/12/20 01:41 82 115/55 L 11/12/20 01:40 85 96 11/12/20 01:35 79 97 11/12/20 01:30 83 97 11/12/20 01:27 77 124/61 11/12/20 01:25 78 97 11/12/20 01:20 80 97 11/12/20 01:15 76 97 11/12/20 01:12 75 134/67 11/12/20 01:10 77 96 11/12/20 01:05 83 97 11/12/20 01:00 36.8 C 79 18 97 11/12/20 00:57 82 142/67 H 11/12/20 00:55 81 97 11/12/20 00:50 83 97 11/12/20 00:45 91 H 97 11/12/20 00:41 101 H 122/59 L 11/12/20 00:40 101 H 96 11/12/20 00:35 95 H 95 11/12/20 00:30 93 H 95 11/12/20 00:27 93 H 122/58 L 94 11/12/20 00:25 92 H 95 11/12/20 00:20 93 H 95 11/12/20 00:15 88 95 11/12/20 00:11 88 120/56 L 11/12/20 00:10 91 H 96 11/12/20 00:05 85 96 11/12/20 00:00 82 96 11/11/20 23:56 88 113/58 L 11/11/20 23:55 89 96 11/11/20 23:50 86 97 11/11/20 23:45 106 H 98 11/11/20 23:43 127 H 18 128/75 11/11/20 23:40 104 H 99 11/11/20 23:35 95 H 98 11/11/20 23:30 80 97 11/11/20 23:27 71 118/57 L 11/11/20 23:25 77 96 11/11/20 23:20 78 97 11/11/20 23:15 76 97 11/11/20 23:12 74 125/63 11/11/20 23:10 77 98 11/11/20 23:05 76 97 11/11/20 23:00 87 98 11/11/20 22:56 96 H 135/78 11/11/20 22:55 104 H 97 11/11/20 22:50 99 H 97 11/11/20 22:45 101 H 96 11/11/20 22:42 37.4 C 18 11/11/20 22:40 105 H 97 11/11/20 22:35 89 98 11/11/20 22:30 97 H 97 11/11/20 22:27 88 134/75 11/11/20 22:25 96 H 97 11/11/20 22:20 103 H 97 11/11/20 22:15 88 97 11/11/20 22:12 83 137/74 11/11/20 22:10 87 97 11/11/20 22:05 86 95 11/11/20 22:00 81 96 11/11/20 21:56 84 121/64 11/11/20 21:55 84 95 11/11/20 21:50 82 95 11/11/20 21:45 79 95 11/11/20 21:42 81 128/63 11/11/20 21:40 79 95 11/11/20 21:35 82 96 11/11/20 21:30 86 95 11/11/20 21:26 80 125/64 11/11/20 21:25 99 H 96 11/11/20 21:20 81 96 11/11/20 21:15 76 96 11/11/20 21:12 74 126/67 11/11/20 21:10 73 96 11/11/20 21:05 37.2 C 79 96 11/11/20 21:00 70 18 96 11/11/20 20:57 70 117/56 L 11/11/20 20:55 74 96 11/11/20 20:50 74 96 11/11/20 20:45 79 96 11/11/20 20:41 75 108/55 L 11/11/20 20:40 72 97 11/11/20 20:35 75 97 11/11/20 20:30 73 97 11/11/20 20:28 72 109/56 L 11/11/20 20:25 81 98 11/11/20 20:20 73 98 11/11/20 20:15 75 97 11/11/20 20:11 71 122/67 11/11/20 20:10 75 97 11/11/20 20:05 90 97 11/11/20 20:00 72 18 97 11/11/20 19:56 71 117/66 11/11/20 19:55 83 97 11/11/20 19:50 76 97 11/11/20 19:45 85 97 11/11/20 19:42 79 117/67 11/11/20 19:40 80 98 11/11/20 19:35 85 98 11/11/20 19:30 89 98 11/11/20 19:25 84 97 11/11/20 19:20 86 98 11/11/20 19:15 36.9 C 87 18 97 11/11/20 19:10 81 98 11/11/20 19:05 80 98 11/11/20 19:00 97 H 97 11/11/20 18:58 91 H 120/75 11/11/20 18:55 91 H 97 11/11/20 18:50 83 97 11/11/20 18:45 86 97 11/11/20 18:42 80 122/58 L 11/11/20 18:40 84 97 11/11/20 18:35 88 97 11/11/20 18:30 82 97 11/11/20 18:28 80 20 120/72 11/11/20 18:25 81 98 11/11/20 18:20 78 96 11/11/20 18:15 77 97 11/11/20 18:13 78 122/69 11/11/20 18:10 76 97 11/11/20 18:05 82 98 11/11/20 18:00 81 98 11/11/20 17:57 75 18 118/66 11/11/20 17:55 77 98 11/11/20 17:50 75 98 11/11/20 17:45 80 98 11/11/20 17:42 82 150/77 H 11/11/20 17:40 84 98 11/11/20 17:35 81 98 11/11/20 17:30 87 98 11/11/20 17:26 81 18 126/69 11/11/20 17:25 74 98 11/11/20 17:24 78 132/70 11/11/20 17:22 81 137/69 11/11/20 17:20 76 141/65 H 98 11/11/20 17:18 77 18 136/75 11/11/20 17:16 80 18 132/71 11/11/20 17:15 80 98 11/11/20 17:14 87 18 138/73 11/11/20 17:12 81 18 132/73 11/11/20 17:10 81 18 131/72 98 11/11/20 17:08 88 18 128/70 11/11/20 17:06 90 126/66 11/11/20 17:05 89 98 11/11/20 17:04 94 H 128/72 11/11/20 17:02 91 H 18 143/87 H 11/11/20 17:00 85 20 135/81 98 11/11/20 16:58 36.8 C 81 20 131/75 11/11/20 16:56 80 20 136/81 11/11/20 16:55 80 98 11/11/20 16:54 71 20 134/78 11/11/20 16:52 93 H 20 149/85 H 11/11/20 16:50 87 150/90 H 99 11/11/20 16:48 81 20 144/92 H 11/11/20 16:45 112 H 99 11/11/20 16:41 102 H 20 149/90 H 11/11/20 16:40 99 H 98 11/11/20 15:38 86 18 133/71 11/11/20 14:32 37.3 C 73 18 135/70 11/11/20 13:05 37.4 C 16 11/11/20 10:51 36.7 C 70 20 134/91 Pain Intensity Lower Abdomen: Pain Intensity: 0 Transfer of Care Handoff Completed per policy Notes Mental Status: alert / awake / arousable and participated in evaluation Patient Amnestic to Procedure: Yes Nausea / Vomiting: adequately controlled Pain: adequately controlled Airway Patency, RR, SpO2: stable & adequate BP & HR: stable & adequate Hydration State: stable & adequate Neuraxial Anesthesia: was administered and sensory block is resolving Anesthetic Complications: no major complications apparent and Pt Satisfied with anesthetic care
[2020-11-12] MEDS: OXYTOCIN 30 UNITS in LACTATED RINGER'S 1,000 ML IV SCH ×2 (10:12→18:50)
[2020-11-12] MEDS: SIMETHICONE 80 MG CHEW PO SCH ×3 (12:59→21:26)
[2020-11-12] MEDS: KETOROLAC 30 MG/ML VIAL IV PRN ×2 (15:24→23:59)
[2020-11-12] MEDS: DOCUSATE SODIUM 100 MG CAP PO SCH (21:26)
--- NOTE | 2020-11-13 02:31 | Labor Progress Brief Note ---
Date of Service November 13, 2020 Subjective Patient has been repositioned on both sides, and hands and knees. Then pushed again, making some progress to +1 station. At this point, patient is requesting section. She feels like she is emotionally and physically exhausted and cannot continue. I counseled her on this being her 3rd , and that with some good pushing effort, we would likely be able to deliver the baby vaginally. She again requests section instead. Informed consent obtained, will proceed to OR for section for maternal request due to exhaustion. Assessment & Plan Admission and Anticipated Discharge Date Admission Date: November 11, 2020 Results & Data ([facility]) Vital Signs (Past 12 Hours) Vital Signs Temp Pulse Resp BP Pulse Ox Pulse Ox 11/13/20 01:24 16 95 11/13/20 01:08 16 99 11/13/20 00:15 16 100 11/13/20 00:05 37.3 C 83 18 134/76 99 11/12/20 22:27 16 97 11/12/20 21:25 18 100 11/12/20 20:30 18 99 11/12/20 19:20 36.7 C 77 18 124/86 98 98 11/12/20 18:13 18 100 11/12/20 17:00 18 99 11/12/20 16:15 18 97 11/12/20 15:00 37.0 C 97 H 20 129/74 99 99 Coding Level of Care Code None
--- NOTE | 2020-11-13 02:32 | History & Physical Bridge Note ---
Date of Service November 13, 2020 History & Physical Bridge Note I have examined the patient, reviewed the History & Physical and in the interval since the performance of the History & Physical I have noted the following changes of clinical significance: no changes noted Patient has been repositioned on both sides, and hands and knees. Then pushed again, making some progress to +1 station. At this point, patient is requesting section. She feels like she is emotionally and physically exhausted an d cannot continue. I counseled her on this being her 3rd , and that with some good pushing effort, we would likely be able to deliver the baby vaginally. She again requests section instead. Informed consent obtained, will proceed to OR for section for maternal request due to exhaustion.
[2020-11-13] MEDS ORDERED: ceFAZolin 2000MG 2,000 MG/15 ML SYR IV ONE (02:35)
[2020-11-13] MEDS ORDERED: diphenhydrAMINE Capsule 25 MG CAP PO PRN (03:30)
[2020-11-13] MEDS ORDERED: KETOROLAC 30 MG/ML VIAL IV PRN (03:30)
[2020-11-13] MEDS ORDERED: ONDANSETRON INJ 2 MG/ML 2 ML VIAL IV PRN (03:30)
[2020-11-13] MEDS ORDERED: PROMETHAZINE HCL 25 MG in SODIUM CHLORIDE 0.9% 50 ML IV PRN (03:30)
[2020-11-13] MEDS ORDERED: diphenhydrAMINE 50 MG/ML VIAL IV PRN (03:30)
[2020-11-13] MEDS: oxyCODONE/ACETAMINOPHEN 5mg/325mg TAB PO PRN ×5 (04:16→21:16)
[2020-11-13] MEDS: AMPICILLIN/SULBACTAM SOD 1,500 MG in 0.9 % SODIUM CHLORIDE 100 ML IV SCH ×4 (04:24→21:24)
[2020-11-13 05:56] LABS: Basophils # (auto) 0.02 K/uL (0-0.2); Basophils % (auto) 0.2 %; Eosinophils # (auto) 0.12 K/uL (0-0.5); Eosinophils % (auto) 1.1 %; Hematocrit (blood only) 28.7 % (37-47); Hemoglobin 8.7 g/dL (12.0-16.0); Immature Granulocytes # (auto) 0.02 K/uL (0.00-0.02); Immature Granulocytes % (auto) 0.2 %; Lymphocytes # (auto) 1.71 K/uL (1.2-3.4); Lymphocytes % (auto) 15.3 %; Mean Corpuscular Hemoglobin 24.9 pg (25-34); Mean Corpuscular Hgb Conc 30.3 g/dL (32-36); Mean Corpuscular Volume 82.2 fL (80-100); Monocytes # (auto) 0.66 K/uL (0.11-0.59); Monocytes % (auto) 5.9 %; Neutrophils # (auto) 8.66 K/uL (1.4-6.5); Neutrophils % (auto) 77.3 %; Nucleated RBC # (auto) 0.02 K/uL (0-0); Nucleated RBC % (auto) 0.2 %; Platelet Count 205 K/uL (130-400); RDW Coefficient of Variation 15.8 % (11.5-14.5); RDW Standard Deviation 46.7 fL (36.4-46.3); Red Blood Count 3.49 M/uL (4.2-5.4); White Blood Count 11.19 K/uL (4.8-10.8)
[2020-11-13] MEDS ORDERED: CITRIC ACID/SODIUM CITRATE 15 ML UDC PO SCH (06:00)
--- NOTE | 2020-11-13 07:12 | Obstetrical Progress Note ---
Date of Service November 13, 2020 Assessment & Plan (1) Supervision of normal intrauterine in primigravida: POD#1 doing well. No concerns. Ambulating, eating, drinking ok. Breast feeding ok. Pain controlled. Passing gas. Incision CDI. No fevers since prior to CS, will plan to stop antibiotics at 24h post-delivery. Subjective Ambulation: ambulating normally Voiding: no voiding problems Diet Tolerance:: regular diet Lochia:: Moderate Review of Systems All systems reviewed & are unremarkable except as noted in HPI & below Physical Exam Constitutional WD/WN, vitals as above no acute distress Respiratory normal respiratory effort Cardiovascular Rate/Rhythm: regular rate and regular rhythm Gastrointestinal (Abdomen) Inspection/Auscultation: abdomen normal to inspection; abdomen not distended Percussion/Palpation: abdomen soft Genitourinary OB Exam Abdomen: + fundal height Fundus: + firm; not tender Results & Data ([facility]) Vital Signs (Past 12 Hours) Vital Signs Temp Pulse Resp BP Pulse Ox Pulse Ox 11/13/20 03:50 36.9 C 84 17 126/78 99 11/13/20 02:30 16 96 11/13/20 01:24 16 95 11/13/20 01:08 16 99 11/13/20 00:15 16 100 11/13/20 00:05 37.3 C 83 18 134/76 99 11/12/20 22:27 16 97 11/12/20 21:25 18 100 11/12/20 20:30 18 99 11/12/20 19:20 36.7 C 77 18 124/86 98 98
[2020-11-13] MEDS: FERROUS SULFATE 325 MG TAB PO SCH (08:11)
[2020-11-13] MEDS: DOCUSATE SODIUM 100 MG CAP PO SCH ×2 (08:11→21:18)
[2020-11-13] MEDS: SIMETHICONE 80 MG CHEW PO SCH ×4 (08:11→21:16)
[2020-11-13] MEDS: PRENATAL VITAMIN 1 TAB PO SCH (08:11)
[2020-11-13] MEDS: CETIRIZINE HCL 10 MG TABLET PO SCH (08:11)
[2020-11-13] MEDS: IBUPROFEN 600 MG TAB PO PRN ×4 (08:12→21:16)
[2020-11-13] MEDS ORDERED: bisacodyL 5 MG TABEC PO SCH (20:00)
[2020-11-14] MEDS: IBUPROFEN 600 MG TAB PO PRN ×4 (01:58→21:31)
[2020-11-14] MEDS: oxyCODONE/ACETAMINOPHEN 5mg/325mg TAB PO PRN ×4 (01:59→21:31)
[2020-11-14] MEDS: AMPICILLIN/SULBACTAM SOD 1,500 MG in 0.9 % SODIUM CHLORIDE 100 ML IV SCH (03:49)
[2020-11-14 06:08] LABS: Hematocrit (blood only) 25.8 % (37-47); Hemoglobin 7.9 g/dL (12.0-16.0)
--- NOTE | 2020-11-14 07:30 | Obstetrical Progress Note ---
Date of Service November 14, 2020 Assessment & Plan (1) delivery delivered: Plan: 30yo POD 2 s/p LTCS at 37 weeks -Continue routine care -Vitals reviewed- HDS, afebrile -Chorioamnionitis treated with Unasyn -Encourage ambulation, regular diet -Pain control with ibuprofen, acetaminophen PRN -Encourage -Hgb 8.7 --> 7.9 -discharge likely tomorrow, late afternoon today possible Admission and Anticipated Discharge Date Admission Date: November 11, 2020 Supervising Physician Co-Signing Physician Notes Resident Physician Supervision Note: I was present with [Name of resident] during the history and exam. I discussed the case with the resident and agree with the findings and plan as documented in the note. Any exceptions or clarifications are listed here: [None] Documented By: Fatuma Aguero MD, FACOG Subjective POD 2 s/p LTCS. Patient seen and examined at bedside. Reports no acute overnight events. Ambulating and voiding. Passing gas, not yet stool. Regular diet w/o N/V. Breast Feeding Pain 10, mostly abdominal. Review of Systems Review of Systems: Denies fevers/chills. Mild SOB upon waking up, otherwise normal. Denies chest pain. Denies breast pain or discharge. Denies dysuria. Denies headache. Denies back pain. Physical Exam Physical Exam: General: Alert, oriented, no acute distress Cardiac: Regular rate and rhythm, normal S1, S2. No murmurs appreciated. Respiratory: Clear to auscultation b/l with good air flow entry, symmetric chest rise and fall. No wheezes or crackles. No increased work of breathing or accessory muscle use Abdomen: Soft, nontender, nondistended. Fundus firm and palpable at umbilicus. Surgical incision clean, dry and intact without erythema, warmth or drainage. Bowel sounds appreciated. No guarding or rebound. Skin: No rashes or lesions Extremities: Warm, dry, well-perfused with capillary refill <2s b/l. No lower extremity edema, erythema or swelling. Negative Diane's sign b/l. Results & Data ([facility]) Vital Signs (Past 12 Hours) Vital Signs Temp Pulse Resp BP Pulse Ox 11/14/20 01:00 36.5 C 91 H 16 127/76 96 11/13/20 19:40 36.9 C 85 16 119/70 98 Resident Activity Tracking Resident Involvement: Resident Care Provided Care Provided: OB Delivery
[2020-11-14] MEDS ORDERED: bisacodyL 10 MG SUPP PR PRN (08:45)
[2020-11-14] MEDS: SIMETHICONE 80 MG CHEW PO SCH ×4 (09:37→21:31)
[2020-11-14] MEDS: DOCUSATE SODIUM 100 MG CAP PO SCH ×2 (09:37→21:32)
[2020-11-14] MEDS: FERROUS SULFATE 325 MG TAB PO SCH (09:37)
[2020-11-14] MEDS: PRENATAL VITAMIN 1 TAB PO SCH (09:37)
[2020-11-14] MEDS: CETIRIZINE HCL 10 MG TABLET PO SCH (09:38)
[2020-11-15] MEDS: oxyCODONE/ACETAMINOPHEN 5mg/325mg TAB PO PRN ×2 (06:35→11:57)
[2020-11-15] MEDS: IBUPROFEN 600 MG TAB PO PRN ×2 (06:36→11:57)
--- NOTE | 2020-11-15 08:08 | Obstetrical Progress Note ---
Date of Service November 15, 2020 Assessment & Plan (1) delivery delivered: Plan: 30yo POD 3 s/p LTCS at 37 weeks -Continue routine care, incision site healing well with no signs of infection -Vitals reviewed- HDS, afebrile -Chorioamnionitis treated with Unasyn -Encourage ambulation, regular diet -Pain control with ibuprofen, acetaminophen PRN -Encourage -Hgb 8.7 --> 7.9 yesterday -discharge likely today, f/u with OB in 6 weeks Admission and Anticipated Discharge Date Admission Date: November 11, 2020 Supervising Physician Co-Signing Physician Notes Resident Physician Supervision Note: I was present with Dr. Flores during the history and exam. I discussed the case with the resident and agree with the findings and plan as documented in the note. Any exceptions or clarifications are listed here: [None] Documented By: Allie Ann MD, FACOG Subjective POD 3 s/p LTCS. Patient seen and examined at bedside. Reports no acute overnight events. Ambulating and voiding. Passing gas and stool. Regular diet w/o N/V. Breast Feeding. Pain 5/10, mostly abdominal but has improved since yesterday. Review of Systems Review of Systems: Denies fevers/chills. Mild SOB upon waking up, otherwise normal. Denies chest pain. Denies breast pain or discharge. Denies dysuria. Denies headache. Denies back pain. Physical Exam Physical Exam: General: Alert, oriented, no acute distress Cardiac: Regular rate and rhythm, normal S1, S2. No murmurs appreciated. Respiratory: Clear to auscultation b/l with good air flow entry, symmetric chest rise and fall. No wheezes or crackles. No increased work of breathing or accessory muscle use Abdomen: Soft, nontender, nondistended. Fundus firm and palpable 1 cm below umbilicus. Surgical incision clean, dry and intact without erythema, warmth or drainage. Bowel sounds appreciated. No guarding or rebound. Skin: No rashes or lesions Extremities: Warm, dry, well-perfused with capillary refill <2s b/l. No lower extremity edema, erythema or swelling. Negative Diane's sign b/l. Results & Data ([facility]) Vital Signs (Past 12 Hours) Vital Signs Temp Pulse Resp BP 11/15/20 03:30 36.6 C 94 H 18 136/78 Resident Activity Tracking Resident Involvement: Resident Care Provided Care Provided: OB Delivery
[2020-11-15] MEDS: SIMETHICONE 80 MG CHEW PO SCH ×2 (08:36→11:57)
[2020-11-15] MEDS: FERROUS SULFATE 325 MG TAB PO SCH (08:36)
[2020-11-15] MEDS: PRENATAL VITAMIN 1 TAB PO SCH (08:36)
[2020-11-15] MEDS: DOCUSATE SODIUM 100 MG CAP PO SCH (08:36)
[2020-11-15] MEDS: CETIRIZINE HCL 10 MG TABLET PO SCH (08:37)
--- NOTE | 2020-11-19 08:44 | Discharge Summary ---
Date of Service November 19, 2020 Discharge Data Consultations 11/11/20 08:43 Consult Anesthesiology Stat Procedures Performed Operation Date: 11/12/20 07:20 Actual Procedures p Section in LD, Delivery of live male [place] at 0813(Bilateral) - Aline Carson MD Hospital Course (1) delivery delivered: 30yo POD 3 s/p LTCS at 37 weeks -Continue routine care, incision site healing well with no signs of infection -Vitals reviewed- HDS, afebrile -Chorioamnionitis treated with Unasyn -Encourage ambulation, regular diet -Pain control with ibuprofen, acetaminophen PRN -Encourage -Hgb 8.7 --> 7.9 yesterday -discharge likely today, f/u with OB in 6 weeks Coding Level of Care Code None Diagnoses delivery delivered O82
== END 2020-11-15 13:10 | disposition home or self-care (01) | DRG 786 ==
LOC: OPB 08:22 → 4S1 08:23 → 4S2 11-12 11:15